=== PATIENT | female | born 1955 | race Caucasian/White ===

== ENCOUNTER → 2023-09-08 | Outpatient (CLI) | payer MEDICARE ==
[2023-09-08 10:18] VITALS: BP 138/84; PULSE 71; RESP 16; TEMP 97.1
--- NOTE | 2023-09-08 12:07 | P.PAINPG ---
PQRS Measure Charge Sheet Comment: HISTORY OF PRESENT ILLNESS: A 68 yr old female w at side as a referral from Dr Shanti Richey presents today w severe and chronic neck pain secondary to spondylosis and facet arthropathy without myelopathy for evaluation. Pt states pain level is provoked at 8 /10 in intensity, constant, localized in the lower cervical spine, predominantly axial, having in character w occasional shooting pain towards the BL shoulders. Pain is provoked by external rotation. Pain is alleviated by PT x 4 wks which ended in Jul 2023, alternating heat & ice, medications (Naproxen, Tyl, Ibu, Mobic), BioFreeze topical, repositioning and rest. Cervical disability score at 24. PMH: OA, HTN, MDD PSH: L Shoulder Partial RCT SH: Denies FH: Non contributory All: See list Meds: See list REVIEW OF ORGAN SYSTEMS: CONSTITUTIONAL: No fevers or chills. No recent weight loss. NEUROLOGICAL: + numbness and tingling along the distal extremities. No seizure disorders or headaches. MUSCULOSKELETAL: + pain PSYCHIATRIC: Denies current depression or suicidal thoughts. Physical Examinations : Constitutional : Cooperative , not in acute distress . Neurologic : Cranial nerve II to XII intact. No focal neurological deficits. Psychiatric : alert & oriented x 3. Matching mood & appropriate affect. Judgment & insight intact. Musculoskeletal : Cervical Spine Motor strength in the deltoid and biceps: Normal right side. Normal Left side Motor strength biceps and the wrist extensors: Normal right side . Normal left side Motor strength in the triceps muscle: Normal right side. Normal left side Deep tendon reflexes: Normal at the biceps. Normal at Brachioradialis. Normal at triceps Vertebral body tenderness to deep palpation over C6 Cervical facet loading test: positive bilaterally Spurling test: positive bilaterally C6- C7 Neck distraction test: positive bilaterally Ross sign: positive bilaterally Lumbar spine Motor strength lower extremities ,thigh and legs 5/5 Right side , 5/5 Left side Deep tendon reflexes : Normal Knee Jerk. Normal Ankle Jerk Vertebral body tenderness over Rodriguez Test positive Lumbar facet Loading Test: positive Right / positive Left Range of motion of the lumbar spine Flexion 30 degrees, extension 10 degrees Straight Leg Raise test: Left/ Right positive at degree Myriam test: positive right / positive left. Severe tenderness over the Sacroiliac joint on the Right / Left sides Gaenslen test: positive bilaterally Seated flexion test: positive bilaterally. Sacral spine : Severe tenderness over the Sacroiliac joint: right side / left side Range of motion: Flexion of the lumbar spine <60 degrees Range of motion: Extension of the lumbar spine <20 degrees Gaenslen's Test positive Myriam test: positive right side / left side Thigh Thrust Test Sacral Thrust Test Imaging: MRI of the cervical spine from 08/16/2023 reviewed Assessment/ Plan : Cervical DDD Recommendation of DANIKA C6-C7 #1. May need a series of injections for optimal pain relief. Risks, benefits of procedure discussed and patient verbalized understanding. Admits to anti- coagulant use or medical history of diabetes. Protocol for discontinuation/ continuation of medications shruthi procedure discussed. All questions answered. I have spent greater than 30 minutes on patient care today. Dr Arguello was available by phone for the evaluation of this patient. The time was used to review the medical records including relevant urine studies and Prescription history (MAPs), review of the available imaging, evaluation and examination of the patient, coordination of care with the medical staff and if applicable referring physicians, as well as creation of the medical record Controlled Substance Measures - Controlled Substance Measures Is patient prescribed a controlled substance at discharge?: No
== END ==
LOC: PNWHC3 09:53
PROVIDERS: ATTEND Specialist
DX: M50.323 Other cervical disc degeneration at C6-C7 level (principal); M19.90 Unspecified osteoarthritis, unspecified site; I10 Essential (primary) hypertension; F32.9 Major depressive disorder, single episode, unspecified
CPT/HCPCS: 99211

== ENCOUNTER 2023-09-22 10:43 | Day surgery (SDC) | payer MEDICARE ==
[~2023-09-22 10:43] MED LIST: LACTATED RINGERS 1,000 ML IV SCH
[2023-09-22 11:46] VITALS: TEMP 98
[2023-09-22] MEDS ORDERED: IOPAMIDOL M300 15ML VIAL ONE (13:07)
[2023-09-22] MEDS ORDERED: DEXAMETHASONE SOD PHOSPHATE 10 MG/ML 1 ML VIAL ONE (13:07)
[2023-09-22] MEDS ORDERED: ROPIVACAINE 5MG/ML 20ML VIAL ONE (13:07)
[2023-09-22 13:33] VITALS: RESP 16
--- NOTE | 2023-09-22 13:33 | P.PCN ---
Description of Procedure: PROCEDURE 1. Injection of radio contrast material into cervical epidural space, cervical epidurogram, interpretation of cervical epidurogram, Cervical epidural steroid injection under fluoroscopic guidance, C6-7 (fluoroscopy images available in the radiology department ) 2. Cervical epidurogram. PREOPERATIVE DIAGNOSIS: 1- Cervical Degenerative Disc Diseases 2- Cervical radiculopathy., 3-cervical spondylosis with cervical Facet arthropathy without myelopathy.4-cervical spinal stenosis POSTOPERATIVE DIAGNOSIS: : 1- Cervical Degenerative Disc Diseases , 2- Cervical radiculopathy. 3-,cervical spondylosis with cervical Facet arthropathy without myelopathy. 4-cervical spinal stenosis ANESTHESIA: Local anesthetics infiltration. In the OR continuous pulse ox, EKG, blood pressure and verbal communication was maintained. EBL : None PROCEDURE INDICATION: The patient with neck pain and radiculitis unresponsive to conservative treatment consents for procedure. Discussed the procedure, alternatives and possible complications which may include increased pain, infection, bleeding, nerve damage, paralysis all of which could be permanent. Patient understands and all questions were answered. PROCEDURE DESCRIPTION : After getting consent patient was taken to the OR , positioned in prone position and time out was completed. A pillow was placed under the patients chest to increase the cervical interlaminar space. The cervical area was prepped and draped in the usual sterile fashion. Using anterior-posterior fluoroscopy, interlaminar space was identified and the skin over this site was marked and then infiltrated with 1% lidocaine subcutaneously. Subsequently, a 20-gauge 3-1/2-inch Tuohy epidural needle was inserted and advanced toward the epidural space with the loss of resistance technique using a syringe filled with preservative-free normal saline and guided by AP and lateral fluoroscopy. Negative CSF, negative blood, negative paresthesia. The correct needle position in the epidural space was verified with the injection of 2 mL of the water soluble contrast dye [id number] and observing an excellent epidurogram with the epidural spread of the dye, after repeat negative aspiration 3 mL solution was injected which consists of 1 mL of preservative-free normal saline mixed with 2 mL of 20 mg dexamethasone and a washout of epidurogram was seen. Needle was withdrawn intact, skin was cleansed, and bandages were applied. Disposition: Patient tolerated the procedure well. No complication. Patient was placed in supine position and transferred to the recovery room area in stable condition and there was no evidence of upper or lower extremity motor or sensory deficit after the procedure patient was discharged from recovery room after discharge criteria met and home discharge instructions was given by the staff and patient will follow with the pain clinic in 2-4 weeks
[2023-09-22 14:09] VITALS: BP 130/93; PULSE 70
--- NOTE | 2023-09-23 14:35 | FL ---
EXAMINATION TYPE: FL guided pain mgmt statistic DATE OF EXAM: 09/22/2023 FLUOROSCOPY Fluoroscopy time of 32 seconds was used during cervical epidural injection. 2 image/s document/s the procedure. [id number] mGycm2 DAP
== END 2023-09-22 14:03 | disposition home or self-care (01) ==
LOC: ORPAIN 10:43
PROVIDERS: ATTEND Pain Medicine Interventional Pain Medicine
DX: M47.22 Other spondylosis with radiculopathy, cervical region (principal); M48.02 Spinal stenosis, cervical region; M50.123 Cervical disc disorder at C6-C7 level with radiculopathy
CPT/HCPCS: 62321; J1100; Q9967; J2795

== ENCOUNTER → 2023-10-12 | Outpatient (CLI) | payer MEDICARE ==
[2023-10-12 11:17] VITALS: BP 121/79; PULSE 70; RESP 16; TEMP 97.1
--- NOTE | 2023-10-12 14:43 | P.PAINPG ---
PQRS Measure Charge Sheet Comment: HISTORY OF PRESENT ILLNESS: A 68 yr old female w at side presents today w severe and chronic neck pain secondary to spondylosis and facet arthropathy without myelopathy for evaluation s/p DANIKA C6-C7 #1. Pt states she experienced 80 % pain relief x 3 wks s/p procedure. Pt states pain level is provoked at 4 /10 in intensity, intermittent, localized in the lower cervical spine, predominantly axial, having in character w occasional shooting pain towards the BL shoulders. Pain is provoked by external rotation. Pain is alleviated by PT x 4 wks which ended in Jul 2023, alternating heat & ice, medications, topical, repositioning and rest. Cervical disability score at 17. Interventional procedures include DANIKA C6-C7 x1 Medications include Naproxen, Mobic, Tyl, Ibu, BioFreeze Gel REVIEW OF ORGAN SYSTEMS: CONSTITUTIONAL: No fevers or chills. No recent weight loss. NEUROLOGICAL: + numbness and tingling along the distal extremities. No seizure disorders or headaches. MUSCULOSKELETAL: + pain PSYCHIATRIC: Denies current depression or suicidal thoughts. Physical Examinations : Constitutional : Cooperative , not in acute distress . Neurologic : Cranial nerve II to XII intact. No focal neurological deficits. Psychiatric : alert & oriented x 3. Matching mood & appropriate affect. Judgment & insight intact. Musculoskeletal : Cervical Spine Motor strength in the deltoid and biceps: Normal right side. Normal Left side Motor strength biceps and the wrist extensors: Normal right side . Normal left side Motor strength in the triceps muscle: Normal right side. Normal left side Deep tendon reflexes: Normal at the biceps. Normal at Brachioradialis. Normal at triceps Vertebral body tenderness to deep palpation Cervical facet loading test: positive bilaterally Spurling test: positive bilaterally C6- C7 Neck distraction test: positive bilaterally Ross sign: positive bilaterally Lumbar spine Motor strength lower extremities ,thigh and legs 5/5 Right side , 5/5 Left side Deep tendon reflexes : Normal Knee Jerk. Normal Ankle Jerk Vertebral body tenderness over Rodriguez Test positive Lumbar facet Loading Test: positive Right / positive Left Range of motion of the lumbar spine Flexion 30 degrees, extension 10 degrees Straight Leg Raise test: Left/ Right positive at degree Myriam test: positive right / positive left. Severe tenderness over the Sacroiliac joint on the Right / Left sides Gaenslen test: positive bilaterally Seated flexion test: positive bilaterally. Sacral spine : Severe tenderness over the Sacroiliac joint: right side / left side Range of motion: Flexion of the lumbar spine <60 degrees Range of motion: Extension of the lumbar spine <20 degrees Gaenslen's Test positive Myriam test: positive right side / left side Thigh Thrust Test Sacral Thrust Test Imaging: MRI of the cervical spine from 08/16/2023 reviewed Assessment/ Plan : Cervical DDD Recommendation of medication management. Mobic 15mg QD #30 w 1 RF. Use, side effects, adverse reactions and safe storage discussed. All questions answered. I have spent greater than 30 minutes on patient care today. Dr Arguello was available by phone for the evaluation of this patient. The time was used to review the medical records including relevant urine studies and Prescription history (MAPs), review of the available imaging, evaluation and examination of the patient, coordination of care with the medical staff and if applicable referring physicians, as well as creation of the medical record - Pain Location Bilateral Lower Neck Non-Pharmacological Interventions: Heat Pharmacological Interventions: Epidural, PRN Medication PQRS Narrative: Hx Alcohol Use (MH) No Home Medications: Ambulatory Orders Ascorbic Acid [Vitamin C] 500 mg PO DAILY 09/17/23 Aspirin 81 mg PO DAILY 09/17/23 Calcium Carbonate [Calcium] 600 mg PO DAILY 09/17/23 Cholecalciferol [Vitamin D3 (25 Mcg = 1000 Iu)] 25 mcg PO DAILY 09/17/23 Cyanocobalamin (Vitamin B-12) [Vitamin B-12] 1,000 mcg PO DAILY 09/17/23 Escitalopram [Lexapro] 20 mg PO DAILY 09/17/23 L.acidoph,Paracasei, B.lactis [Probiotic] 1 each PO DAILY 09/17/23 Magnesium Oxide [Magnesium] 500 mg PO DAILY 09/17/23 Multivitamins, Thera [Multivitamin (formulary)] 1 tab PO DAILY 09/17/23 Rosuvastatin Calcium 5 mg PO HS 09/17/23 Ubidecarenone [Co Q-10] 300 mg PO DAILY 09/17/23 Vitamin E (Dl,Tocopheryl Acet) [Vitamin E (400 Iu = 180 mg)] 180 mg PO DAILY 09/17/23 valACYclovir HCL [Valacyclovir] 500 mg PO DAILY 09/17/23 Meloxicam [Mobic] 15 mg PO DAILY 30 Days #30 tab 10/12/23 Controlled Substance Measures - Controlled Substance Measures Is patient prescribed a controlled substance at discharge?: No
== END ==
LOC: PNWHC3 10:37
PROVIDERS: ATTEND Specialist
DX: M47.812 Spondylosis without myelopathy or radiculopathy, cervical region (principal); M50.323 Other cervical disc degeneration at C6-C7 level
CPT/HCPCS: 99211